=== PATIENT | male | born 1940 | race Caucasian/White ===

== ENCOUNTER → 2019-04-24 | Day surgery (SDC) | payer OTHER ==
--- NOTE | 2019-04-23 16:22 | Diagnostic Imaging Report ---
Exam: PA and lateral chest radiograph Clinical history: Preoperative clearance Findings: A subcentimeter calcified granuloma is noted in the right mid lung. There is no evidence of pulmonary consolidation, pleural effusion, or pneumothorax. The cardiac size is within normal limits. The regional osseous structures are unremarkable. Impression: 1. No radiographic evidence of acute cardiorespiratory disease. Signed by: Dr. Gus Latham MD on 04/23/2019 4:19 PM
--- NOTE | 2019-04-23 16:32 | Diagnostic Imaging Report ---
Exam: KUB Clinical history: Preoperative clearance Findings: Prominent air-filled small and large bowel loops are noted in the anterior abdomen with moderate retained feces in the transverse colon. Calcific density structures are noted in bilateral pelvic region most consistent with phleboliths. Degenerative changes of the lower lumbar spine is noted. Impression: Mildly prominent air-filled small and large bowel loops in the upper abdomen which may represent ileus or enteritis. Signed by: Dr. Gus Latham MD on 04/23/2019 4:29 PM
[~2019-04-24] MED LIST: ASPIR 8181 MG PO; ATORVASTATIN CA10 MG PO; CEFOXITIN 1GM/ D5W 50ML 50 ML IV ONE; DEXAMETHASONE SOD PHOS INJ 4 MG/ML VIAL ONE; EPHEDRINE SULFATE INJ 50 MG/10 ML SYR ONE; FENTANYL CITRATE/PF 100MCG/2 ML INJ ONE; FLOMAX0.4 MG PO; GLIPIZIDE5 MG PO; HYDROMORPHONE 1MG/1ML INJ ONE; IOPAMIDOL 610MG/1ML 300 MG/ML VIAL IV ONE; KETOROLAC TROMETHAMINE 30 MG/ML VIAL ONE; LEVOTHYROXINE50 MCG PO; LIDOCAINE HCL 2% LOCAL INJ 5 ML SDV VIAL INJ ONE; MACROBID 100 M100 MG PO; METFORMIN HCL500 MG PO; METOPROLOL TART25 MG PO; MIDAZOLAM HCL 2 MG/2 ML VIAL ONE; OMEGA-31000 MG PO; ONDANSETRON HCL INJ 2MG/ML 2ML 2 MG/ML VIAL ONE; PROPOFOL IV EMULSION 10 MG/ML 20 ML VIAL ONE; RAMIPRIL5 MG PO; SEVOFLURANE INHAL SOLN 250 ML PEN BTL ONE; TYLENOL WITH C1 EACH PO; VITAMIN B12-FO1 EACH PO; VITAMIN D31000 UNI2
--- OUTSIDE RECORDS SUMMARY | 2019-04-24 08:53 | XMS REPORT ---
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 Allergies, Adverse Reactions, Alerts This patient has no known allergies or adverse reactions. Medications This patient has no known medications. Results Test Description Test Time Test Comments Text Results Atomic Results Result Comments ABDOMEN-1VIEW (KUB) 2019-04-23 16:27:00 [place] [address] Patient Name: BE CANSECO MR #: [id number] : 1940 Age/Sex: 78/M Req #: [id number] Adm Physician: Ordered by: EBONI GARBER MD Report #: [id number] Location: OR Room/Bed: Procedure: [id number] DX/ABDOMEN-1VIEW (KU) Exam Date: 04/23/19 Exam Time: 1350 REPORT STATUS: Signed Exam: KUB Clinical history: Preoperative clearance Findings: Prominent air-filled small and large bowel loops are noted in the anterior abdomen with moderate retained feces in the transverse colon. Calcific density structures are noted in bilateral pelvic region most consistent with phleboliths. Degenerative changes of the lower lumbar spine is noted. Impression: Mildly prominent air-filled small and large bowel loops in the upper abdomen which may represent ileus or enteritis. Signed by: Dr. Gus Latham MD on 04/23/2019 4:29 PM Dictated By: LAUREN LATHAM MD 28 Transcribed By: AMELIA on 04/23/191628 COPY TO: EBONI GARBER MD CHEST 2 VIEWS 2019-04-23 16:18:00 [place] [address] Patient Name: BE CANSECO MR #: [id number] : 1940 Age/Sex: 78/M Req #: [id number] Adm Physician: Ordered by: EBONI GARBER MD Report #: [id number] Location: OR Room/Bed: Procedure: [id number] DX/CHEST 2 VIEWS Exam Date: 04/23/19 Exam Time: 1350 REPORT STATUS: Signed Exam: PA and lateral chest radiograph Clinical history: Preoperative clearance Findings: A subcentimeter calcified granuloma is noted in the right mid lung. There is no evidence of pulmonary consolidation, pleural effusion, or pneumothorax. The cardiac size is within normal limits. The regional osseous structures are unremarkable. Impression: 1. No radiographic evidence of acute cardiorespiratory disease. Signed by: Dr. Gus Latham MD on 04/23/2019 4:19 PM Dictated By: LAUREN LATHAM MD 18 Transcribed By: AMELIA on 04/23/191618 COPY TO: EBONI GARBER MD CT ABDOMEN/PELVIS WITHOUT 2019-04-11 06:40:[address] [id number] IMAGING REPORTPatient Name: BE CANSECO of Service: [id number]: 77 Sex: M Order #: [id number] Room: RUSTB: 1941 X-Ray Number: [id number] Record Number: [id number] Hospital Number: [id number] Physician: SHERON LAWSON -Ordering Physician: SHERON LAWSON -CT abdomen and pelvis.History: Left flank pain for 4 daysTechnique: Noncontrast CT images.This CT exam was performed using one or more of the following dosereduction techniques: Automated exposure control, adjustment of the MAand/or KV according to patient size or use of iterative reconstructiontechnique.Comparison: Left flank pain for 4 daysFindings:Abdomen/pelvis: There is an approximately 6 mm stone in the distal leftureter on image 88. There is mild associated hydronephrosis/hydroureter andmild left perinephric stranding. There small bilateral nonobstructive renalcalculi. No evidence of an obstructive renal stone on the right.Small amount of bibasilar atelectasis. Coronary artery calcifications.Noncontrast examination of the liver, pancreas, spleen and adrenal glandsis unremarkable. Nonaneurysmal, atherosclerotic abdominal aorta. Nopathologically enlarged mesenteric or retroperitoneal lymph nodes.No evidence of appendicitis. No evidence of inflammatory strandinginvolving the colon to suggest colitis or diverticulitis. The bladder isunremarkable. Prostate calcifications.Musculoskeletal: Degenerative changes of the spine.Impression:There is an obstructing 6 mm stone in the distal left ureter as detailedabove. There is mild associated hydronephrosis and hydroureter.Electronically Signed By: Victorino Jacinto M.D., 04/11/2019 6:38 AMLegally authenticated by JOHANNE LOPEZ JR 2019-04-11 06:38:07 LIPASE 2019-04-10 20:38:00 LIPASE (test code=LIPA) 172 U/L 23-300 LIVER [id number] 20:38:00* Test Item Value Reference Range Comments TOTPROT (test code=TOTPROT) 6.9 G/DL 6.3-8.2 ALBUMIN (test code=ALBSERUM) 4.0 G/DL 3.5-5.0 BILITOT (test code=BILITOT) 0.4 MG/DL 0.2-1.3 BILIDIR (test code=BILIDIR) 0.2 MG/DL 0.0-0.4 AST (test code=AST) 28 U/L 15-46 PHOSALK (test code=PHOSALK) 51 U/L 38-126 ALT (test code=ALT) 27 U/L 13-69 [id number] 20:27:00* Test Item Value Reference Range Comments GLUCOSE (test code=URGLU) NEGATIVE MG/DL NEG-100 BILIRUBN (test code=URBILI) NEGATIVE NEGATIVE KETONE (test code=URKET) NEGATIVE MG/DL NEGATIVE BLOOD (test code=URBLD) SMALL UR PH (test code=URPH) 5.5 5.0-7.5 PROTEIN (test code=URPRO) NEGATIVE MG/DL NEGATIVE NITRITES (test code=URNIT) NEGATIVE NEGATIVE UROBILINGEN (test code=URURO) 0.2 EU/DL 0.2-1.0 LEUKOCYT (test code=URLEU) NEGATIVE NEGATIVE UA COLOR (test code=UA COLOR) YELLOW YELLOW CLARITY (test code=CLARITY) CLEAR CLEAR SP GRAV (test code=URSPGRAV) 1.018 1.000-1.025 UAMICRO (test code=UAMICRO) NO WBC (test code=URWBC) 2 /HPF 0-5 RBC (test code=URRBC) 30 /HPF 0-2 CASTS (test code=CAST) 2 /LPF 0-3 UR EPI (test code=EPI) 9 /LPF BACTERIA (test code=BACTERIA) NEGATIVE NONE [id number] 20:19:00* Test Item Value Reference Range Comments WBC (test code=WBC) 8.3 K/UL 3.5-10.9 RBC (test code=RBC) 4.61 M/UL 4.3-5.7 HGB (test code=HGB) 12.7 G/DL 13.0-17.9 HCT (test code=HCT) 39.8 % 38-52 MCV (test code=MCV) 86.3 FL 80-98 MCH (test code=MCH) 27.5 PG 28-32 MCHC (test code=MCHC) 31.9 G/DL 32.5-36.5 RDW (test code=RDW) 14.1 % 11.5-14.5 PLT (test code=PLT) 184 K/UL 150-450 MPV (test code=MPV) 11.3 FL 7.4-10.4 MANDIFF (test code=MANDIFF) NO SCAN (test code=SCAN) NO NEUT% (test code=NEUT%) 46.4 % 40-75 LYMPH% (test code=LYMPH%) 38.9 % 24-44 MONO% (test code=MONO%) 11.3 % 0-13 EOS% (test code=EOS%) 2.8 % 0-4 BASO % (test code=BASO%) 0.4 % 0-2 IG (test code=IG) 0 % 0-1 IG% (test code=IG%) 0.2 % 0-1 IG%=Metamyelocytes, Myelocytes, and Promyelocytes. (Immature neutrophils not including "bands".) > 3% IG indicates risk of sepsis NRBC% (test code=NRBC%) 0 /100 WBC ABS NEUT (test code=NEUT) 3.9 K/UL 1.2-7.2 ISTAT [id number] [id number] 20:00:00* Test Item Value Reference Range Comments ISTATNA (test code=ISTATNA) 143 MMOL/L 137-145 ISTATK (test code=ISTATK) 3.7 MMOL/L 3.6-5.0 ISTATCL (test code=ISTATCL) 104 MMOL/L 98-107 ISTIONCA (test code=ISTIONCA) 1.13 MMOL/L 1.12-1.32 ISTCO2 (test code=ISTCO2) 25 MMOL/L 22-30 ISTATGLU (test code=ISTATGLU) 109 MG/DL 65-110 ISTATBUN (test code=ISTATBUN) 16.0 MG/DL 7.0-20.0 ISTCREA (test code=ISTCREA) 0.7 MG/DL 0.7-1.5 ISTATHCT (test code=ISTATHCT) 38 %PCV 37.0-52.0 ISTATHGB (test code=ISTATHGB) 12.9 G/DL 12.0-18.0 Notified Nurse/MD of results outside of Reference Ranges ISTANGAP (test code=ISTANGAP) 18 MMOL/L Notified Nurse/MD of results outside of Reference Ranges WHOLE BLOOD [id number] 10:12:00* Test Item Value Reference Range Comments WHOLE BLOOD GLUCOSE (test code=POC GLU) 127 mg/dL 70-99 Fasting glucose normal <100 MG/DL- [employer] recommendation [id number] 15:14:00HEART RATE: 48 bpmRR Interval: 1250 msAtrial Rate: 48 msP- R Interval: 162 msP Duration: 113 msP Horizontal [place]: 0 degP Front [place]: 31 degQ Onset: 509 msQRSD Interval: 89 msQT Interval: 416 msQTcB: 372 msQTcF: 386 msQRS Horizontal [place]: -55 degQRS [place]: 16 degI-40 Horizontal [place]: 48 degI-40 Front [place]: 43 degT-40 Horizontal [place]: -81 degT-40 Front [place]: 20 degT Horizontal [place]: 73 degT Wave [place]: 50 degS-T Horizontal [place]: 93 degS-T Front [place]: 79 degECG Severity: - OTHERWISE NORMAL ECG -ECG Impression: Sinus bradycardiaBMP, BASIC METABOLIC [id number] 18:16:00* Test Item Value Reference Range Comments SODIUM (test code=NA) 144 MMOL/L 137-145 K+ (test code=KSERUM) 5.0 MMOL/L 3.5-5.1 PLEASE NOTE NEW REFERENCE RANGE(S) IN EFFECT EFFECTIVE 04/06/2010 - NEW ANALYZER (Cogo 5600) CHLORIDE (test code=CL) 104 MMOL/L 98-107 CO2 (test code=CO2) 29 MMOL/L 22-30 BUN (test code=BUN) 22 MG/DL 9-20 CREA (test code=CREA) 0.8 MG/DL 0.8-1.5 GLUCOSE (test code=GLUCOSE) 98 MG/DL 70-99 Fasting glucose normal <100 MG/DL- [employer] recommendation CALCIUM (test code=CABLOOD) 9.8 MG/DL 8.4-10.2 GFR (test code=GFR) TNP mL/min/1.73m2 GFR CALCULATION IS NOT APPLICABLE FOR PATIENTS <18 A GFR of >90 mL/min/1.73m2 is considered normal. [id number] 17:42:00* Test Item Value Reference Range Comments GLUCOSE (test code=URGLU) NEGATIVE MG/DL NEG-100 BILIRUBN (test code=URBILI) NEGATIVE NEGATIVE KETONE (test code=URKET) NEGATIVE MG/DL NEGATIVE BLOOD (test code=URBLD) NEGATIVE UR PH (test code=URPH) 5.5 5.0-7.5 PROTEIN (test code=URPRO) NEGATIVE MG/DL NEGATIVE NITRITES (test code=URNIT) NEGATIVE NEGATIVE UROBILINGEN (test code=URURO) 0.2 EU/DL 0.2-1.0 LEUKOCYT (test code=URLEU) TRACE NEGATIVE UA COLOR (test code=UA COLOR) YELLOW YELLOW CLARITY (test code=CLARITY) CLEAR CLEAR SP GRAV (test code=URSPGRAV) 1.017 1.000-1.025 UAMICRO (test code=UAMICRO) YES WBC (test code=URWBC) 2 /HPF 0-5 RBC (test code=URRBC) 5 /HPF 0-2 CASTS (test code=CAST) 1 /LPF 0-3 UR EPI (test code=EPI) 1 /LPF BACTERIA (test code=BACTERIA) NEGATIVE NONE [id number] 16:26:00* Test Item Value Reference Range Comments WBC (test code=WBC) 7.5 K/UL 3.5-10.9 RBC (test code=RBC) 4.66 M/UL 4.3-5.7 HGB (test code=HGB) 13.7 G/DL 13.0-17.9 HCT (test code=HCT) 40.8 % 38-52 MCV (test code=MCV) 87.6 FL 80-98 MCH (test code=MCH) 29.4 PG 28-32 MCHC (test code=MCHC) 33.6 G/DL 32.5-36.5 RDW (test code=RDW) 14.1 % 11.5-14.5 PLT (test code=PLT) 177 K/UL 150-450 MPV (test code=MPV) 11.7 FL 7.4-10.4 MANDIFF (test code=MANDIFF) NO SCAN (test code=SCAN) NO NEUT% (test code=NEUT%) 48.2 % 40-75 LYMPH% (test code=LYMPH%) 38.8 % 24-44 MONO% (test code=MONO%) 9.9 % 0-13 EOS% (test code=EOS%) 2.3 % 0-4 BASO % (test code=BASO%) 0.5 % 0-2 IG (test code=IG) 0 % 0-1 IG% (test code=IG%) 0.3 % 0-1 IG%=Metamyelocytes, Myelocytes, and Promyelocytes. (Immature neutrophils not including "bands".) > 3% IG indicates risk of sepsis ABS NEUT (test code=NEUT) 3.6 K/UL 1.2-7.2 CHEST 1 [id number] 16:21:[address] [address]GPAREPOKGC IMAGING REPORTPatient Name: BE CANSECO EDate of Service: [id number]: 76 Sex: M Order #: [id number] Room: [facility]: 1941 X-Ray Number: [id number] Record Number: [id number] Hospital Number: [id number] Physician: Ata WOODARDing Physician: Sofia WOODARD.05/14/2018 3:48 PMHistory: Hypertension.Technique: Single AP chest projection.Findings: Single chest projection demonstrates normal heart size and clearlungs. No infiltrates or abnormalities are depicted. The osseous structuresappear intact.Impression:No acute-appearing cardiopulmonary abnormalities.Electronically Signed By: Alan Velasquez M.D., 05/14/2018 4:15 PMLegally authenticated by SILVANA Jasmine 2018-05-14 16:15:44WHOLE BLOOD [id number] 10:47:00* Test Item Value Reference Range Comments WHOLE BLOOD GLUCOSE (test code=POC GLU) 126 mg/dL 70-99 Fasting glucose normal <100 MG/DL- [employer] recommendation [id number] 12:44:00* Test Item Value Reference Range Comments GLUCOSE (test code=URGLU) NEGATIVE MG/DL NEG-100 BILIRUBN (test code=URBILI) NEGATIVE NEGATIVE KETONE (test code=URKET) NEGATIVE MG/DL NEGATIVE BLOOD (test code=URBLD) SMALL UR PH (test code=URPH) 6.0 5.0-7.5 PROTEIN (test code=URPRO) TRACE MG/DL NEGATIVE NITRITES (test code=URNIT) NEGATIVE NEGATIVE UROBILINGEN (test code=URURO) 0.2 EU/DL 0.2-1.0 LEUKOCYT (test code=URLEU) NEGATIVE NEGATIVE UA COLOR (test code=UA COLOR) YELLOW YELLOW CLARITY (test code=CLARITY) CLEAR CLEAR SP GRAV (test code=URSPGRAV) 1.025 1.000-1.025 UAMICRO (test code=UAMICRO) YES WBC (test code=URWBC) 0 /HPF 0-5 RBC (test code=URRBC) 5 /HPF 0-2 CASTS (test code=CAST) 0 /LPF 0-3 UR EPI (test code=EPI) 6 /LPF BACTERIA (test code=BACTERIA) NEGATIVE NONE CRYSTALS (test code=CRYSTALS) MODERATE /HPF NONE CRYSTYPE (test code=CRYSTYPE) CA OXALATE CT HEAD W/O [id number] 10:52:[address] [id number] IMAGING REPORTPatient Name: BE CANSECO EDate of Service: 49-07-4203Ddu: 76 Sex: M Order #: [id number] Room: [facility]: 1941 X-Ray Number: [id number] Record Number: [id number] Hospital Number: [id number] Physician: SHERON LAWSON -Ordering Physician: KEL BEDOYA head without contrast 8:00 PMHISTORY: Altered mental status, numbness to face, possible CVAComparisons: 09/23/2016This CT exam was performed using one or more of the following dosereduction techniques: Automated exposure control, adjustment of the MAand/or KV according to patient size or use of iterative reconstructiontechnique.Findings:There is diffuse cortical atrophy.Periventricular white matter changes are technically nonspecific althoughthese suggest chronic small vessel gliosis.There is no mass effect or midline shift present.There is no extra-axial fluid collection, intracranial hemorrhage orhydrocephalus.Impression:Suspected chronic/old is chemic changes with diffuse cortical atrophy.No acute intracranial abnormality i s detected.EMERGENT INTERPRETATION PROVIDED BY [facility] .Electronically Signed By: Gamal Cruz M.D., 02/09/2018 10:49 AMLegally aut henticated by NARENDRA ESPINO 2018-02-09 10:49:43CHEST 1 VIEW [id number] 10:47:[address] [id number] IMAGING REPORTPatient Name: BE CANSECO of Service: [id number]: 76 Sex: M Order #: [id number] Room: ERDOB: 1941 X- Ray Number: [id number] Record Number: [id number] Hospital Number: [id number] Physician: SHERON LAWSON -Ordering Physician: Salome BEDOYA one view 8:00 PMComparisons: 10/10/2007: Hypoglycemia, weakness.FINDINGS:Heart size is borderline.There is no focal lung consolidation.There is no definite pleural effusion or pneumothorax identified.IMPRESSION:No acute cardiopulmonary process.EMERGENT INTERPRETATION PROVIDED BY [facility].Electronically Si gned By: Gamal Cruz M.D., 02/09/2018 10:44 AMLegally authenticated by NARENDRA GEE 2018-02-09 10:44:[id number] 21:41:00* Test Item Value Reference Range Comments %CKMB (test code=%MB) 1.5 % CKMB (test code=CKMB) 0.7 NG/ML 0.22-2.4 CK (test code=CK) 48 U/L 55-170 CKINTERP (test code=CKINTERP) NEGATIVE Negative TROPONIN I - [id number] 21:41:00* Test Item Value Reference Range Comments TROP-I (test code=TROP-I) <0.012 ng/ml 0.012-0.033 INTERPRETIVE DATA A TROPONIN OF LESS THAN 0.034 NG/ML IS CONSIDERED NEGATIVE A TROPONIN OF 0.034 - 0.119 NG/ML IS CONSIDERED GRAYZONE A TROPONIN=/> 0.120 NG/ML IS CONSIDERED POSITIVE BMP, BASIC METABOLIC [id number] 21:32:00* Test Item Value Reference Range Comments SODIUM (test code=NA) 145 MMOL/L 137-145 K+ (test code=KSERUM) 4.0 MMOL/L 3.5-5.1 PLEASE NOTE NEW REFERENCE RANGE(S) IN EFFECT EFFECTIVE 04/06/2010 - NEW ANALYZER (Cogo 5600) CHLORIDE (test code=CL) 108 MMOL/L 98-107 CO2 (test code=CO2) 26 MMOL/L 22-30 BUN (test code=BUN) 24 MG/DL 9-20 CREA (test code=CREA) 0.8 MG/DL 0.8-1.5 GLUCOSE (test code=GLUCOSE) 90 MG/DL 70-99 Fasting glucose normal <100 MG/DL- [employer] recommendation CALCIUM (test code=CABLOOD) 9.3 MG/DL 8.4-10.2 GFR (test code=GFR) TNP mL/min/1.73m2 GFR CALCULATION IS NOT APPLICABLE FOR PATIENTS <18 A GFR of >90 mL/min/1.73m2 is considered normal. [id number] 21:24:00* Test Item Value Reference Range Comments GLUCOSE (test code=URGLU) NEGATIVE MG/DL NEG-100 BILIRUBN (test code=URBILI) NEGATIVE NEGATIVE KETONE (test code=URKET) NEGATIVE MG/DL NEGATIVE BLOOD (test code=URBLD) NEGATIVE UR PH (test code=URPH) 5.5 5.0-7.5 PROTEIN (test code=URPRO) NEGATIVE MG/DL NEGATIVE NITRITES (test code=URNIT) NEGATIVE NEGATIVE UROBILINGEN (test code=URURO) 0.2 EU/DL 0.2-1.0 LEUKOCYT (test code=URLEU) NEGATIVE NEGATIVE UA COLOR (test code=UA COLOR) YELLOW YELLOW CLARITY (test code=CLARITY) CLEAR CLEAR SP GRAV (test code=URSPGRAV) 1.025 1.000-1.025 UAMICRO (test code=UAMICRO) NO [id number] 21:10:00* Test Item Value Reference Range Comments WBC (test code=WBC) 8.7 K/UL 3.5-10.9 RBC (test code=RBC) 4.52 M/UL 4.3-5.7 HGB (test code=HGB) 12.9 G/DL 13.0-17.9 HCT (test code=HCT) 38.7 % 38-52 MCV (test code=MCV) 85.6 FL 80-98 MCH (test code=MCH) 28.5 PG 28-32 MCHC (test code=MCHC) 33.3 G/DL 32.5-36.5 RDW (test code=RDW) 15.0 % 11.5-14.5 PLT (test code=PLT) 154 K/UL 150-450 MPV (test code=MPV) 11.6 FL 7.4-10.4 MANDIFF (test code=MANDIFF) NO SCAN (test code=SCAN) NO NEUT% (test code=NEUT%) 50.9 % 40-75 LYMPH% (test code=LYMPH%) 33.8 % 24-44 MONO% (test code=MONO%) 11.7 % 0-13 EOS% (test code=EOS%) 2.9 % 0-4 BASO % (test code=BASO%) 0.5 % 0-2 IG% (test code=IG%) 0.2 % 0-1 IG%=Metamyelocytes, Myelocytes, and Promyelocytes. (Immature neutrophils not including "bands".) > 3% IG indicates risk of sepsis NRBC% (test code=NRBC%) 0 /100 WBC ABS NEUT (test code=NEUT) 4.4 K/UL 1.2-7.2 WHOLE BLOOD [id number] 19:59:00* Test Item Value Reference Range Comments WHOLE BLOOD GLUCOSE (test code=POC GLU) 98 mg/dL 70-99 Fasting glucose normal <100 MG/DL- [employer] recommendation CHEST XR 2 [id number] 14:48:[address] [id number] IMAGING REPORTPatient Name: BE CANSECO EDate of Service: 21-95-1756Hgk: 75 Sex: M Order #: [id number] [facility] 1941 [facility] Number: [id number] Record Number: [id number] Hospital Number: [id number] Physician: Caden PATRICK Physician: SALOME BEDOYA 2 VIEWS:CLINICAL HISTORY: Left-sided chest pain radiating down the left arm,dyspnea and coughTECHNIQUE: PA and lateralFINDINGS: The heart and vascularity are within normal limits and the lungsare clear.There are few small dense granulomas present.There are senescent changes seen in the bony thorax and great vessels.Impression: No acute changes are demonstrated.Electronically Signed By: Estiven Brady M.D., 10/10/2017 2:45 PMLegally authenticated by HARJINDER Dela Cruz 2017-10-10 14:45:50
[2019-04-24 13:45] VITALS: BP 136/80
--- NOTE | 2019-04-24 13:52 | Operative Report ---
DATE OF PROCEDURE: 04/24/2019 SURGEON: Todd Kelsey MD PREOPERATIVE DIAGNOSES: Left ureter calculus, left hydronephrosis. POSTOPERATIVE DIAGNOSES: Left ureter calculus, left hydronephrosis. OPERATION PERFORMED: Left ureteroscopy with holmium laser lithotripsy and insertion of left ureter stent. ANESTHESIA: General. INDICATIONS: The patient is an is a 78-year-old white male, who started having severe problems on the right side with pain. His first kidney stone was in 1972 and he has passed numerous stones since that time. He has had extracorporeal shockwave lithotripsy for kidney stones in the past. A CT scan for stone protocol taken on April 10, 2019 revealed tiny stones bilaterally. There was a 6 mm stone in the distal 3rd of the left ureter causing moderate left hydronephrosis. The patient's urinalysis showed microscopic hematuria. The patient had a past history of heart disease and had not seen a funeral pre arrangement counselor in years, so we had the patient see a funeral pre arrangement counselor for cardiac clearance. For further details, please refer to the history and physical. The procedure was done in the following fashion. PROCEDURE IN DETAIL: The patient was taken to the operating room, placed under general anesthesia and dressed and draped with Hibiclens in lithotomy position in the usual fashion. The patient was initially evaluated with the C-arm and I really could not identify the stones with the C-arm. The 22-Vincentian Olympus cystoscope was inserted with the 30 degree oblique lens and video camera attachment. No urethral strictures were encountered. The sphincter and verumontanum were intact. The prostate was estimated about 30 g. The ureteral orifices were very close to the bladder neck. The bladder had moderate trabeculation. No bladder stones or bladder tumors were identified. A 5-Vincentian open-ended catheter was used to advanced a SureGlide guidewire up into the left ureter and I could feel where it was just bouncing off the stone in the distal 3rd. I then advanced the 5-Vincentian open-ended catheter over the guidewire, a little more and then removed the guidewire, obtained a retrograde pyelogram. This revealed some mild to moderate hydronephrosis and an area of obstruction in the distal 3rd of the left ureter. I then reinserted the SureGlide guidewire. My next step was to pass a 10-Vincentian double lumen introducer over the SureGlide guidewire and an Amplatz Super Stiff was passed through the free lumen as a safety guidewire. The 10-Vincentian double lumen introducer was removed after I documented the above guidewire were in good position. My next step was to remove the telescope, leaving both guidewires going up into the kidney. I then passed the Olympus semi-rigid ureteroscope over the SureGlide guidewire adjacent to the Amplatz Super Stiff going through the cystoscope sheath. I readily encountered the stone in the distal 3rd of the ureter. This was about a 6 mm stone and it was very jagged in appearance. My next step was to remove the SureGlide guidewire and then advanced the 0.375 holmium laser probe. The probe was set at 1 joule and 8 hertz. The stone then fragmented readily under direct vision. When the largest fragment of the stone appeared to be about 3 mm in size. I then removed the laser and inserted a stone basket and then engaged the stone and removed it. I then reinserted the 10-Vincentian double lumen introducer over the Amplatz Super Stiff and reinserted the short glide guidewire, I then looked my way back into the ureter again, using the semi-rigid ureteroscope, some additional small stone fragments were removed with the stone basket as before. Once this was accomplished, I then passed a 5-Vincentian open-ended catheter over the Amplatz Super Stiff and obtained a retrograde pyelogram, which showed no extravasation and the ureter appeared to be stone free. The 5-Vincentian open-ended catheter was removed. The bladder was emptied and the cystoscope sheath withdrawn. The patient tolerated the procedure well and left the operating room in good condition. The stones were then sent for analysis. The patient is being sent home on Macrobid 100 mg p.o. twice daily #14 and Tylenol No. 3 one p.o. q.6 hours p.r.n. pain #30. He will have return appointment to see me again in two weeks. Todd Kelsey MD SRA/MODL /[id number]
== END | disposition home or self-care (01) ==
LOC: OR 08:50
PROVIDERS: ATTEND Urology
DX: N13.2 Hydronephrosis with renal and ureteral calculous obstruction (principal); I25.10 Atherosclerotic heart disease of native coronary artery without angina pectoris; I10 Essential (primary) hypertension; E03.9 Hypothyroidism, unspecified; J45.20 Mild intermittent asthma, uncomplicated; M47.9 Spondylosis, unspecified; Z86.010 Personal history of colon polyps; E78.00 Pure hypercholesterolemia, unspecified; E11.9 Type 2 diabetes mellitus without complications; Z88.2 Allergy status to sulfonamides; Z79.82 Long term (current) use of aspirin; Z95.5 Presence of coronary angioplasty implant and graft; Z80.9 Family history of malignant neoplasm, unspecified; Z82.49 Family history of ischemic heart disease and other diseases of the circulatory system; E78.5 Hyperlipidemia, unspecified; Z79.84 Long term (current) use of oral hypoglycemic drugs
CPT/HCPCS: 36415; 52356; 71046; 74018; 74420; 82948; 88300; 93005; C1758; C1788; J1100; J1170; J1885; J2001; J2250; J2405; J3010